=== PATIENT | female | born 1990 | race Caucasian/White ===

== ENCOUNTER 2016-06-25 18:36 | Emergency (ER) | payer OTHER | END 2016-06-25 20:51 | disposition home or self-care (01) | LOC: ER 18:36 | DX: B34.9 Viral infection, unspecified (principal); J06.9 Acute upper respiratory infection, unspecified; Z20.828 Contact with and (suspected) exposure to other viral communicable diseases; E11.9 Type 2 diabetes mellitus without complications; R51 Headache; Z79.4 Long term (current) use of insulin | CPT/HCPCS: 87400; 99283 ==